=== PATIENT | female | born 1960 | race Hispanic/Latino ===

== ENCOUNTER → 2023-11-30 | Outpatient (CLI) | payer BC | END | disposition home or self-care (01) | LOC: RAH 09:34 | PROVIDERS: ATTEND Internal Medicine | DX: N39.0 Urinary tract infection, site not specified (principal); R31.9 Hematuria, unspecified | CPT/HCPCS: 76770 ==

== ENCOUNTER → 2024-02-19 | Outpatient (CLI) | payer BC ==
--- NOTE | 2024-02-19 15:58 | HMCSR ---
APPROVED REPORT EXAM: Two-dimensional and M-mode echocardiogram with Doppler and color Doppler. INDICATION ICD: I42.9 2D Dimensions RVDd4.0 cmLVEF(%)12.9 (>50%)LVED Vol(simp.)160.0 mL IVSd0.7 (0.7-1.1cm)FS(%)6 %LVES Vol(simp.)97.5 mL LVDd5.1 (3.8-5.6cm)LA (2D)4.6 (1.6-4.0cm)LVEF(%, simp.)39 % PWd1.2 (0.7-1.1cm)Ao Root(2D)2.4 (2.0-3.7cm)LA ESV INDEX (4CH)55.10 mL/m2 IVSs0.7 cmLVOT diam2.1 (1.8-2.4cm)LA ESV INDEX (2CH)50.00 mL/m2 LVDs4.8 (2.5-4.0cm)LA ESV INDEX (BP)51.90 mL/m2 PWs1.0 cm M-Mode Dimensions EPSS1.3 cm LA (MM)4.7 (1.6-4.0cm) Ao Root(MM)2.7 (2.0-3.7cm) Aortic Valve AoV VTI0.3 mAo Mean GR4.0 mmHgLVOT VTI0.14 m ELIOT (VMAX)1.7 cm2Al P1/2T403 msAVA (VTI) 1.7 cm2 Mitral Valve MV E Igft098.0 cm/sDECEL Pfiu323 ms MV A Vmax91.2 cm/sP 1/2 T84 ms E/A ratio1.4MVA (PHT)2.6 cm2 TDI E/E' Exejdy78.5E/E' Febgule51.3 Medial E' Peak V3.80 cm/sLateral E' Peak V5.40 cm/s Pulmonary Valve PV VTI0.22 mPV Mean GR2 mmHg Left Ventricle The left ventricle is mildly dilated. Moderate hypokinesis There is normal left ventricular wall thic kness. LVEF is 30-35% Stage II diastolic dysfunction. Right Ventricle The right ventricle is normal size. The right ventricular systolic function is normal. Atria The left atrium is moderately dilated. The right atrium size is normal. Aortic Valve The aortic valve is normal in structure and function. Mild to moderate aortic regurgitation. There is no aortic valvular stenosis. Mitral Valve The mitral valve is normal in structure and function. Mitral regurgitation is moderate. There is no m itral valve stenosis. Tricuspid Valve The tricuspid valve is normal in structure and function. There is trace tricuspid valve regurgitation noted. Pulmonic Valve The pulmonary valve is normal in structure and function. There is no pulmonic valvular regurgitation. Great Vessels The aortic root is normal in size. The IVC is normal in size and collapses >50% with inspiration. Pericardium No pericardial effusion. Conclusion LVEF is 30-35% Stage II diastolic dysfunction. There is normal left ventricular wall thickness. The left ventricle is mildly dilated. Moderate hypokinesis The left atrium is moderately dilated. Mild to moderate aortic regurgitation. Mitral regurgitation is moderate. No pericardial effusion. Normal pulmonary pressures Stduy quality was adequate
== END | disposition home or self-care (01) ==
LOC: RAH 12:52
PROVIDERS: ATTEND Internal Medicine Cardiovascular Disease
DX: I08.0 Rheumatic disorders of both mitral and aortic valves (principal); I42.9 Cardiomyopathy, unspecified; I42.0 Dilated cardiomyopathy
CPT/HCPCS: 93306

== ENCOUNTER → 2024-04-01 | Outpatient (CLI) | payer BC ==
--- NOTE | 2024-04-02 06:28 | HMCSR ---
APPROVED REPORT EXAM: Two-dimensional and M-mode echocardiogram with Doppler and color Doppler. INDICATION ICD: I42.9 2D Dimensions RVDd3.1 cmAo Root(2D)2.7 (2.0-3.7cm)LVED Vol(simp.)139.0 mL IVSd1.0 (0.7-1.1cm)LVOT diam2.0 (1.8-2.4cm)LVES Vol(simp.)73.9 mL LVDd4.5 (3.8-5.6cm)LVEF(%, simp.)47 % PWd1.5 (0.7-1.1cm)LA ESV INDEX (4CH)46.50 mL/m2 LA ESV INDEX (2CH)33.80 mL/m2 LA ESV INDEX (BP)41.10 mL/m2 M-Mode Dimensions EPSS1.3 cm Ao Root(MM)2.4 (2.0-3.7cm) Aortic Valve AoV VTI0.3 mAo Mean GR4.0 mmHgLVOT VTI0.18 m ELIOT (VMAX)1.7 cm2Al P1/2T389 msAVA (VTI) 1.7 cm2 Mitral Valve MV E Yhon698.1 cm/sDECEL Rinp311 ms MV A Vmax96.0 cm/sP 1/2 T110 ms E/A ratio1.3MVA (PHT)2.0 cm2 MR Max PG47 mmHg TDI E/E' Zdxont08.1E/E' Dythrqw07.3 Medial E' Peak V3.40 cm/sLateral E' Peak V6.20 cm/s Tricuspid Valve TR Vmax2.4 m/sRAP (EST) 3 anJgRWDL57.6 mmHg TR Peak GR22.6 mmHg Left Ventricle The left ventricle is mildly dilated. Global hypokinesis There is normal left ventricular wall thickn ess. LVEF is 30-35% Stage II, diastolic dysfunction. Right Ventricle The right ventricle is normal size. The right ventricular systolic function is normal. Atria The left atrium is mildly to moderately dilated. The right atrium size is normal. Aortic Valve The aortic valve is normal in structure and function. Trace of aortic regurgitation is present. There is no aortic valvular stenosis. Mitral Valve The mitral valve is normal in structure and function. There is moderate mitral valve regurgitation by color doppler. There is no mitral valve stenosis. Tricuspid Valve The tricuspid valve is normal in structure and function. There is trace of tricuspid valve regurgitat ion noted. Pulmonic Valve The pulmonary valve is normal in structure and function. Great Vessels The aortic root is normal in size. The IVC is normal in size and collapses >50% with inspiration. Pericardium No pericardial effusion. Other Information Quality : Fair Conclusion LVEF is 30-35% Stage II, diastolic dysfunction. There is normal left ventricular wall thickness. The left ventricle is mildly dilated. Global hypokinesis The left atrium is mildly to moderately dilated. No pericardial effusion. Normal pulmonary pressures Study quality was adequate
== END | disposition home or self-care (01) ==
LOC: RAH 13:06
PROVIDERS: ATTEND Internal Medicine Cardiovascular Disease
DX: I34.0 Nonrheumatic mitral (valve) insufficiency (principal); I51.7 Cardiomegaly; I42.9 Cardiomyopathy, unspecified
CPT/HCPCS: 93306

== ENCOUNTER → 2025-01-31 | Outpatient (CLI) | payer BC ==
--- NOTE | 2025-02-01 01:27 | HMCIMG ---
EXAM: CR CHEST, 2 VIEWS CLINICAL HISTORY: Bilateral pleural effusion COMPARISON: None provided TECHNIQUE: Frontal and lateral radiographs of the chest. FINDINGS: Lines/Devices: Cardiac pacemaker is identified in the left chest wall. Lungs: Vascular congestion. No consolidation or ground-glass opacities are observed. There are small bilateral pleural effusions. There is no pneumothorax. Mediastinum and cardiovascular structures: There is calcific aortic atherosclerosis. The cardiac silhouette is enlarged (cardiomegaly). The central airway and mediastinal contours are unremarkable. Bones and soft tissues: Median sternotomy wires are identified. IMPRESSION: 1. Cardiomegaly with vascular congestion and small bilateral pleural effusions. 2. A cardiac pacemaker and median sternotomy wires are present. /[place]
--- NOTE | 2025-02-01 01:59 | HMCIMG ---
EXAM: Abdominal ultrasound, complete. CLINICAL HISTORY: Abdominal pain. TECHNIQUE: St-scale and color Doppler ultrasound evaluation of the liver, gallbladder, common bile duct, pancreas, spleen, aorta, IVC, and kidneys was performed. COMPARISON: None provided. FINDINGS: LIVER: The liver is enlarged measuring 20 cm and demonstrates increased echogenicity. GALLBLADDER: The gallbladder wall appears thickened due to contracted gallbladder. BILIARY TREE: The common bile duct measures 6 mm. PANCREAS: The pancreas appears within normal limits. KIDNEYS: The right kidney measures 10.7 x 3.9 x 3.5 cm. The left kidney measures 9.0 x 5.1 x 3.8 cm. SPLEEN: The spleen measures 12 cm. VASCULATURE: The IVC appears within normal limits. The proximal aorta appears within normal limits, and the mid to distal aorta is obscured by bowel gas. OTHER: Mild right and left pleural effusions are incidentally noted. IMPRESSION: 1. Hepatomegaly with fatty infiltration of the liver. 2. Contracted gallbladder. 3. Common bile duct caliber at the upper limits of normal. 4. Mild bilateral pleural effusions incidentally noted. /[place]
== END | disposition home or self-care (01) ==
LOC: RAH 14:50
PROVIDERS: ATTEND Internal Medicine
DX: K76.0 Fatty (change of) liver, not elsewhere classified (principal); K82.0 Obstruction of gallbladder; J90 Pleural effusion, not elsewhere classified; R10.84 Generalized abdominal pain; R68.83 Chills (without fever); R09.89 Other specified symptoms and signs involving the circulatory and respiratory systems; I51.7 Cardiomegaly; Z95.0 Presence of cardiac pacemaker
CPT/HCPCS: 71046; 76700